=== PATIENT | female | born 2000 | race Caucasian/White ===

== ENCOUNTER 2024-05-11 18:01 | Emergency (ER) | payer SELFPAY ==
[2024-05-11 19:10] LABS: BASOPHILS ABSOLUTE AUTO 0.01 K/uL (0.02-0.10); BASOPHILS PERCENT AUTO 0.1 % (0.0-0.5); EOSINOPHILS ABSOLUTE AUTO 0.03 K/uL (0.04-0.40); EOSINOPHILS PERCENT AUTO 0.4 % (1.0-5.0); HEMATOCRIT 39.8 % (37.0-47.0); HEMOGLOBIN 13.2 g/dL (11.5-16.5); LYMPHOCYTES ABSOLUTE AUTO 1.75 K/uL (1.50-4.00); LYMPHOCYTES PERCENT AUTO 22.2 % (20.0-40.0); MEAN CORPUSCULAR HEMOGLOBIN 29.4 pg (27.0-32.0); MEAN CORPUSCULAR HGB CONC 33.2 g/dL (31.0-35.0); MEAN CORPUSCULAR VOLUME 89 fL (76-96); MEAN PLATELET VOLUME 9.4 fL (6.0-10.0); MONOCYTES PERCENT AUTO 5.1 % (3.0-10.0); NEUTROPHILS PERCENT AUTO 72.2 % (45.0-70.0); PLATELET COUNT,PLT 324 K/uL (150-500); RED BLOOD CELL COUNT 4.49 M/uL (3.80-5.80); RED CELL DISTRIBUTION WIDTH 12.8 % (11.0-16.0); WHITE BLOOD CELL COUNT,WBC 7.9 K/uL (4.0-11.0)
[2024-05-11 19:43] LABS: ANION GAP 12.8 mmol/L (5.0-15.0); BUN/CREATININE RATIO 12.6 (6-25); C-REACTIVE PROTEIN HIGH SENSI 1.17 mg/dL (0.00-3.00); CALCIUM 8.4 mg/dL (8.5-10.1); CARBON DIOXIDE,CO2 28.9 mmol/L (21.0-32.0); CREATININE 0.95 mg/dL (0.55-1.02); EST CRCL DRUG DOSING (CG) 78.46 mL/min; POTASSIUM,K 3.7 mmol/L (3.5-5.1)
[2024-05-11] MEDS ORDERED: Cephalexin 500 MG Cap ONE (20:00)
== END 2024-05-11 20:25 | disposition home or self-care (01) ==
LOC: LB.ED 18:01
DX: L03.115 Cellulitis of right lower limb (principal); Z79.899 Other long term (current) drug therapy
CPT/HCPCS: 36415; 80048; 81025; 83605; 85025; 86141; 99283; A9270

== ENCOUNTER 2024-07-15 10:42 | Emergency (ER) | payer SELFPAY ==
[2024-07-15 11:43] LABS: BASOPHILS ABSOLUTE AUTO 0.02 K/uL (0.02-0.10); BASOPHILS PERCENT AUTO 0.3 % (0.0-0.5); EOSINOPHILS ABSOLUTE AUTO 0.05 K/uL (0.04-0.40); EOSINOPHILS PERCENT AUTO 0.8 % (1.0-5.0); HEMATOCRIT 42.1 % (37.0-47.0); HEMOGLOBIN 14.4 g/dL (11.5-16.5); LYMPHOCYTES ABSOLUTE AUTO 1.53 K/uL (1.50-4.00); MEAN CORPUSCULAR HEMOGLOBIN 30.3 pg (27.0-32.0); MEAN CORPUSCULAR HGB CONC 34.2 g/dL (31.0-35.0); MEAN CORPUSCULAR VOLUME 88 fL (76-96); MEAN PLATELET VOLUME 9.9 fL (6.0-10.0); MONOCYTES ABSOLUTE AUTO 0.26 K/uL (0.20-0.80); MONOCYTES PERCENT AUTO 3.9 % (3.0-10.0); NEUTROPHILS ABSOLUTE AUTO 4.78 K/uL (2.00-7.50); PLATELET COUNT,PLT 281 K/uL (150-500); RED BLOOD CELL COUNT 4.76 M/uL (3.80-5.80); RED CELL DISTRIBUTION WIDTH 12.8 % (11.0-16.0); WHITE BLOOD CELL COUNT,WBC 6.6 K/uL (4.0-11.0)
[2024-07-15 12:09] LABS: ALBUMIN 3.9 g/dL (3.4-5.0); ANION GAP 10.3 mmol/L (5.0-15.0); BILIRUBIN TOTAL 0.5 mg/dL (0.0-1.0); BUN/CREATININE RATIO 9.3 (6-25); CALCIUM 8.9 mg/dL (8.5-10.1); CARBON DIOXIDE,CO2 26.7 mmol/L (21.0-32.0); CREATININE 0.86 mg/dL (0.55-1.02); EST CRCL DRUG DOSING (CG) 96.67 mL/min; PROTEIN TOTAL,TP 7.7 g/dL (6.4-8.2)
[2024-07-18 06:01] LABS: APTIMA MEDIA TYPE Urine; C. TRACHOMATIS BY TMA Negative (Negative); N. GONORRHOEAE BY TMA Negative (Negative); SPECIMEN SOURCE Urine
== END 2024-07-15 11:43 | disposition left against medical advice (07) ==
LOC: LB.ED 10:42
DX: L03.115 Cellulitis of right lower limb (principal); K92.2 Gastrointestinal hemorrhage, unspecified; N94.10 Unspecified dyspareunia; Z91.09 Other allergy status, other than to drugs and biological substances
CPT/HCPCS: 36415; 80053; 84702; 85025; 87491; 87591; 99284